=== PATIENT | male | born 1995 | race Caucasian/White ===

== ENCOUNTER 2016-08-11 17:37 | Emergency (ER) | payer OTHER ==
[~2016-08-11] VITALS: Ht 185.4 cm; Wt 102.1 kg
[2016-08-11 17:37] VITALS: BP 124/65; PULSE 76; RESP 18; TEMP 98; O2SAT 95
[2016-08-11] MEDS ORDERED: ACETAMINOPHEN 500 MG TABLET PO ONE (18:00)
[2016-08-11 18:38] VITALS: BP 115/41; PULSE 72; RESP 16; TEMP 98; O2SAT 97
== END 2016-08-11 18:38 | disposition home or self-care (01) ==
LOC: SED 17:37
DX: S93.622A Sprain of tarsometatarsal ligament of left foot, initial encounter (principal); X58.XXXA Exposure to other specified factors, initial encounter; Y93.66 Activity, soccer; Y92.89 Other specified places as the place of occurrence of the external cause; Y99.8 Other external cause status
CPT/HCPCS: 99284

== ENCOUNTER 2016-10-15 21:54 | Emergency (ER) | payer OTHER ==
[~2016-10-15] VITALS: Ht 185.4 cm; Wt 106.6 kg
[2016-10-15 21:54] VITALS: BP 151/76; PULSE 76; RESP 19; TEMP 98.1; O2SAT 100
--- NOTE | 2016-10-15 21:56 | NUR ---
BROUGHT BACK TO BED #4 AND TRIAGED, REPORT GIVEN TO GERRI
--- NOTE | 2016-10-15 22:10 | NUR ---
PT REPORTS HAVING LOTS OF STRESS RELATED ANXIETY RELATED TO SCHOOL, DRINKING 2-3 MONSTERS DAILY WITH COFFE INTAKE. PT INSTRUCTED TO TAPER OFF ENERGY DRINKS. TEACHIGN DONE ON HEALTH HAZRADS. PT C/O NON RADIAITNG ANTERIO LEFT SIDED CHEST PAIN. DENIES NUMBNESS/TINGLING. RESP EVEN AND UNALBORED, ON RA@99%. SKIN WARM/DRY/INTACT. VSS. NSR ON MONITOR. WILL CONT TO MONITOR CLOSELY.
[2016-10-15] MEDS ORDERED: LORazepam 2 MG/ML VIAL (FOR ER USE) IVP ONE (22:15)
--- NOTE | 2016-10-15 22:16 | NUR ---
DR SANCHEZ IN ROOM FOR EXAM.
[2016-10-15 22:31] LABS: BASOPHILS # (AUTO) 0.1 K/uL (0.0-0.2); BASOPHILS % (AUTO) 0.8 % (0.0-2.0); EOSINOPHILS # (AUTO) 0.1 K/uL (0.0-0.4); EOSINOPHILS % (AUTO) 0.7 % (0.0-4.0); HEMATOCRIT 49.6 % (36-54); HEMOGLOBIN 16.8 g/dL (14.0-18.0); LYMPHOCYTES # (AUTO) 2.4 K/uL (1.0-5.5); LYMPHOCYTES % (AUTO) 30.3 % (20.5-51.5); MEAN CORPUSCULAR HEMOGLOBIN 26 pg (27-31); MEAN CORPUSCULAR HGB CONC 34 % (32-36); MEAN CORPUSCULAR VOLUME 77 fL (79.0-98.0); MONOCYTES # (AUTO) 0.7 K/uL (0.0-1.0); MONOCYTES % (AUTO) 9.6 % (1.7-9.3); NEUTROPHILS # (AUTO) 4.5 K/uL (1.8-7.7); NEUTROPHILS % (AUTO) 58.6 % (40.0-70.0); PLATELET COUNT (AUTO) 244 K/uL (130-430); RED BLOOD CELL COUNT(AUTO) 6.42 MIL/uL (4.2-6.2); RED CELL DISTRIBUTION WIDTH 12.9 % (9.0-15.0); WHITE BLOOD COUNT (AUTO) 7.8 K/uL (4.8-10.8)
[2016-10-15 22:38] LABS: CALCIUM 9.5 mg/dL (8.4-11.0); CHLORIDE 104 mmol/L (98-107); CREATININE 0.96 mg/dL (0.55-1.30); GLUCOSE 101 mg/dL (70-99); SODIUM SERUM 136 mmol/L (136-145); UREA NITROGEN, BLOOD 10 mg/dL (8-21)
[2016-10-15 22:43] LABS: ANION GAP < 3 (5-15); GFR AFRICAN AMERICAN 126 mL/min (>90)
[2016-10-15 22:44] LABS: ALANINE AMINOTRANSFERASE 49 U/L (12-78); ALBUMIN 4.1 g/dL (3.4-4.8); ASPARTATE AMINOTRANSFERASE 21 U/L (10-37); TOTAL BILIRUBIN 0.3 mg/dL (0.0-1.0); TOTAL PROTEIN, SERUM 7.8 g/dL (6.4-8.3)
[2016-10-15 23:27] VITALS: BP 119/74; PULSE 72; RESP 18; O2SAT 98
--- NOTE | 2016-10-15 23:32 | NUR ---
Patient given written and verbal discharge instructions and verbalizes understanding. ER MD discussed with patient the results and treatment provided. Given copies of tests performed in ER. Patient in stable condition. ID arm band removed. IV catheter removed intact and dressing applied, no active bleeding. Patient educated on pain management and to follow up with PMD. Pain Scale 0 Opportunity for questions provided and answered.
== END 2016-10-15 23:27 | disposition home or self-care (01) ==
LOC: SED 21:54
DX: R07.9 Chest pain, unspecified (principal)
CPT/HCPCS: 36415; 71010; 80053; 83880; 84484; 85025; 85379; 93005; 96374; 99285; J2060